=== PATIENT | male | born 1990 | race Caucasian/White ===

== ENCOUNTER 2018-05-29 18:36 | Emergency (ER) | payer SELFPAY ==
[~2018-05-29] VITALS: Ht 188 cm; Wt 121.0 kg
[2018-05-29] MEDS ORDERED: SODIUM CHLORIDE 0.9% 1,000 ML IV ONE (19:25)
[2018-05-29 20:13] LABS: BASOPHILS % 0.8 % (0.0-2.0); EOSINOPHILS % 0.3 % (0.0-5.0); HEMATOCRIT. 40.5 % (42.0-52.0); HEMOGLOBIN. 13.4 g/dL (14.0-18.0); LYMPHOCYTES % 9.7 % (20.0-50.0); MEAN CORPUSCULAR HEMOGLOBIN 29.1 pg (28.0-32.0); MEAN CORPUSCULAR VOLUME 87.8 fL (80.0-94.0); MONOCYTES % 6.5 % (2.0-8.0); NEUTROPHILS % 82.7 % (40.0-76.0); PLATELET 347 x1000/uL (130-400); RED BLOOD CELL COUNT 4.61 mill/uL (4.7-6.1); RED CELL DISTRIBUTION WIDTH 13.9 % (11.6-14.6)
[2018-05-29 20:18] LABS: CHLORIDE 106 mEq/L (98-107)
[2018-05-29 20:19] LABS: PROTHROMBIN TIME 10.2 sec (9.1-11.1)
[2018-05-29 20:21] LABS: ETHANOL BLOOD < 10 mg/dL
[2018-05-29] MEDS ORDERED: LORAZEPAM 2MG/ML CPJ IV ONE (21:00)
[2018-05-30 02:35] VITALS: BP 136/88
== END 2018-05-30 03:00 | disposition home or self-care (01) ==
LOC: ER 19:06
DX: G93.40 Encephalopathy, unspecified (principal)
CPT/HCPCS: 36415; 70450; 71045; 72125; 80053; 80307; 80329; 82962; 83605; 84484; 85025; 85610; 93005; 96361; 96374; 99285; G0482; J2060; J7030

== ENCOUNTER 2021-10-16 22:05 | Emergency (ER) | payer MEDICAID ==
[~2021-10-16] VITALS: Ht 180.3 cm; Wt 109.0 kg
[2021-10-16] MEDS ORDERED: BACITRACIN ZINC OINT UDPKT TOP ONE (23:30)
[2021-10-17] MEDS ORDERED: BO1 TP (00:08)
[2021-10-17] MEDS ORDERED: PETR1BAN35 TP (00:08)
[2021-10-17 01:35] VITALS: BP 132/78
== END 2021-10-17 01:36 | disposition home or self-care (01) ==
LOC: ER 22:05
DX: S92.001A Unspecified fracture of right calcaneus, initial encounter for closed fracture (principal); S82.61XA Displaced fracture of lateral malleolus of right fibula, initial encounter for closed fracture; X58.XXXA Exposure to other specified factors, initial encounter; Y93.89 Activity, other specified; Y92.89 Other specified places as the place of occurrence of the external cause; Y99.8 Other external cause status; F20.9 Schizophrenia, unspecified
CPT/HCPCS: 99283